=== PATIENT | female | born 1980 | race African-American/Black ===

== ENCOUNTER 2018-11-13 17:30 | Emergency (ER) | payer OTHER ==
[~2018-11-13] VITALS: Ht 170.2 cm; Wt 158.8 kg
[2018-11-13 18:01] VITALS: BP 132/62
[2018-11-13] MEDS ORDERED: METHOCARBAMOL 500 MG TAB PO ONE (20:18)
[2018-11-13] MEDS ORDERED: KETOROLAC TROMETH 60MG/2ML VIAL IM ONE (20:18)
== END 2018-11-13 20:48 | disposition home or self-care (01) ==
LOC: ER 17:30
DX: G43.909 Migraine, unspecified, not intractable, without status migrainosus (principal); M54.2 Cervicalgia; M62.838 Other muscle spasm
CPT/HCPCS: 81002; 96372; 99283; J1885